=== PATIENT | male | born 1960 | race Caucasian/White ===

== ENCOUNTER 2021-12-11 11:43 | Day surgery (SDC) | payer MEDICARE, OTHER ==
[~2021-12-11] VITALS: Ht 172.7 cm; Wt 87.3 kg
[~2021-12-11 11:43] MED LIST: AMLO10 PO; ASPI325EC PO; ATOR10 PO; CLOP75 PO; DIAZ10 PO; FAMO20 PO; LISI5 PO; METO100ER PO; METO50 PO; MIRT15 PO; ROSU10TA PO
[2021-12-11] MEDS ORDERED: GLIP2.5ER PO (12:35)
[2021-12-11] MEDS ORDERED: GABA300 PO (12:36)
--- NOTE | 2021-12-11 12:51 | NUR ---
PT ADMITTED TO [facility]. AGREES WITH PLANNED PROCEDURE. LUNG SOUNDS CLEAR.
--- NOTE | 2021-12-11 13:00 | NUR ---
12/11/21 ROBBIE ARANA History, Chart, Medications and Allergies reviewed before start of procedure. Patient confirms NPO status and agrees with scheduled surgery. 3-LEAD EKG REVIEWED WITH PHYSICIAN PRIOR TO START OF PROCEDURE. MONITOR INTACT WITH CONTINUOUS PULSE OXIMETRY AND INTERMITTENT BP. PATIENT DETERMINED TO BE ASA APPROPRIATE FOR PROPOFOL SEDATION PRIOR TO START OF PROCEDURE BY . O2 VIA POM
--- NOTE | 2021-12-11 14:30 | NUR ---
Discharge instructions reviewed with patient. Patient verbalizes understanding. Copy given to patient to take home. Patient States Post-Procedure ride home has been arranged. Discharged via wheelchair to private car for ride home.
== END 2021-12-11 22:57 | disposition home or self-care (01) ==
LOC: ORSCMMR 11:43 → ORSCSDS 13:00 → ORD 13:00 → ORSCMMR 13:00
PROVIDERS: Internal Medicine Gastroenterology
PROC: 0D757ZZ Dilation of Esophagus, Via Natural or Artificial Opening (ICD-10-PCS; principal; 2021-12-11 13:00)
PROC: 0DB58ZX Excision of Esophagus, Via Natural or Artificial Opening Endoscopic, Diagnostic (ICD-10-PCS; principal; 2021-12-11 13:00)
DX: R13.12 Dysphagia, oropharyngeal phase (principal); I21.4 Non-ST elevation (NSTEMI) myocardial infarction; K22.2 Esophageal obstruction; Z87.891 Personal history of nicotine dependence; Z79.01 Long term (current) use of anticoagulants; Z79.82 Long term (current) use of aspirin; Z79.899 Other long term (current) drug therapy
CPT/HCPCS: 82947; 88305; J2704; J7120

== ENCOUNTER 2024-02-29 08:31 | Day surgery (SDC) | payer OTHER ==
[~2024-02-29] VITALS: Ht 172.7 cm; Wt 80.3 kg
[~2024-02-29 08:31] MED LIST changes: +GABA300 PO; +GLIP2.5ER PO; +Lactated Ringer's 1,000 ML IV ONE; +propofoL 50 ML IV ONE
[2024-02-29] MEDS ORDERED: JARDIANCE10 MG (09:08)
[2024-02-29] MEDS ORDERED: SPIR25 (09:09)
[2024-02-29] MEDS ORDERED: Isosorbide Mono30 MG (09:10)
[2024-02-29] MEDS ORDERED: CLOP75 (09:11)
[2024-02-29] MEDS ORDERED: TEMA30 (09:11)
[2024-02-29] MEDS ORDERED: PREG100 (09:11)
[2024-02-29] MEDS ORDERED: Lactated Ringer's 1,000 ML IV ONE (09:28)
[2024-02-29 10:30] VITALS: BP 103/66
== END 2024-02-29 10:39 | disposition home or self-care (01) ==
LOC: ORSCSDS 08:31
PROVIDERS: Specialist
PROC: 0DJD8ZZ Inspection of Lower Intestinal Tract, Via Natural or Artificial Opening Endoscopic (ICD-10-PCS; principal; 2024-02-29 09:45)
DX: Z12.11 Encounter for screening for malignant neoplasm of colon (principal); Z86.010 Personal history of colon polyps; K64.8 Other hemorrhoids; K57.30 Diverticulosis of large intestine without perforation or abscess without bleeding; I25.10 Atherosclerotic heart disease of native coronary artery without angina pectoris; I67.9 Cerebrovascular disease, unspecified; I73.9 Peripheral vascular disease, unspecified; I10 Essential (primary) hypertension; E11.9 Type 2 diabetes mellitus without complications; E78.5 Hyperlipidemia, unspecified; Z79.02 Long term (current) use of antithrombotics/antiplatelets; Z79.899 Other long term (current) drug therapy
CPT/HCPCS: 82947; J2704; J7120